=== PATIENT | female | born 2005 | race Caucasian/White ===

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

== ENCOUNTER 2025-05-28 05:36 | Emergency (ER) | payer OTHER, BC ==
[2025-05-28] MEDS ORDERED: Cephalexin 500 MG CAP ONE (06:00)
== END 2025-05-28 06:06 | disposition home or self-care (01) ==
LOC: MADERS 05:36
DX: N61.0 Mastitis without abscess (principal)
CPT/HCPCS: 99283